=== PATIENT | male | born 1935 | race Caucasian/White ===

== ENCOUNTER 2020-04-23 08:38 | Day surgery (SDC) | payer OTHER ==
[~2020-04-23] VITALS: Ht 185.4 cm; Wt 80.9 kg
[2020-04-23 08:55] VITALS: BP 150/75
[2020-04-23] MEDS ORDERED: MULT-1085 PO (09:02)
[2020-04-23] MEDS ORDERED: fentaNYL/PF 50MCG/1 ML 2ML syringe ONE (09:14)
[2020-04-23] MEDS ORDERED: MIDAZolam 1 MG/ML 5ML VIAL ONE (09:15)
[2020-04-23] MEDS ORDERED: LIDOcaine Viscous 15ml cup ONE (09:15)
[2020-04-23 10:05] VITALS: BP 137/76
[2020-04-23 10:15] VITALS: BP 135/77
[2020-04-23 10:25] VITALS: BP 137/76
[2020-04-23 10:35] VITALS: BP 132/83
[2020-04-23 10:45] VITALS: BP 137/79
== END 2020-04-23 11:05 | disposition home or self-care (01) ==
LOC: GI LAB 08:38
PROVIDERS: ATTEND Internal Medicine Gastroenterology
DX: R13.10 Dysphagia, unspecified (principal); K22.2 Esophageal obstruction; K44.9 Diaphragmatic hernia without obstruction or gangrene; K26.9 Duodenal ulcer, unspecified as acute or chronic, without hemorrhage or perforation; Z87.891 Personal history of nicotine dependence; Z72.89 Other problems related to lifestyle
CPT/HCPCS: 43239; 43249; C1726; G0500; J2250; J3010; J7040; 88305; 88313; 99152; A4620